=== PATIENT | female | born 1975 ===

== ENCOUNTER 2020-03-06 09:00 | Inpatient (IN) ==
[2020-04-17] MEDS ORDERED: Buffered Lidocaine 1% SYRIN 1 ml INTRADERM ONE (06:00)
[2020-04-17] MEDS ORDERED: Lactated Ringers 1000 ml BAG 1,000 ML IV SCH (06:00)
[2020-04-17] MEDS ORDERED: Heparin 5000 UNITS/ML 1 mL VIAL ONE (06:47)
[2020-04-17] MEDS ORDERED: ceFAZolin 2 GM PREMIX 2 GM/50 ML BAG ONE (06:47)
[2020-04-17] MEDS ORDERED: ceFAZolin 1 GM ADVAN 1 GM ADDV.VIAL IVPB ONE (06:47)
[2020-04-17] MEDS ORDERED: Ondansetron 4 mg VIAL 2 MG/ML 2 ml VIAL ONE ×2 (07:08→09:49)
[2020-04-17] MEDS ORDERED: Propofol 10 MG/ML 20 ML BTL ONE (07:08)
[2020-04-17] MEDS ORDERED: fentaNYL 250 mcg/5 ml 50 MCG/ML 5 ml VIAL (250 MCG) ONE (07:08)
[2020-04-17] MEDS ORDERED: Midazolam 2 mg/2 ml VIAL 1 mg/ml 2 ml VIAL (2 mg) ONE (07:08)
[2020-04-17] MEDS ORDERED: Lidocaine 2% PF 5 ML VIAL ONE (07:09)
[2020-04-17] MEDS ORDERED: Rocuronium 50 mg VIAL 10 mg/ml 5 ml VIAL (50 mg) ONE ×2 (07:09→08:32)
[2020-04-17] MEDS ORDERED: Bupivacaine 0.25% SDV 30 ML ONE (07:20)
[2020-04-17] MEDS ORDERED: EPHEDrine (Pressors) 50 MG/ML VIAL ONE (08:30)
[2020-04-17] MEDS ORDERED: Naloxone 0.4 mg VIAL 0.4 mg/ml 1 ml VIAL IV PRN (09:17)
[2020-04-17] MEDS ORDERED: oxyCODONE/Acetamin 5/325 mg TAB PO PRN (09:17)
[2020-04-17] MEDS ORDERED: DiMENhydriNATE IV 50 mg/ml 1 ml VIAL IV PUSH PRN (09:17)
[2020-04-17] MEDS ORDERED: Ondansetron 4 mg VIAL 2 MG/ML 2 ml VIAL IV PRN ×2 (09:17→20:45)
[2020-04-17] MEDS ORDERED: HYDROcodone/ACET. 7.5/325 LIQ 15 ML UDC PO PRN (09:43)
[2020-04-17] MEDS ORDERED: fentaNYL 100 mcg/2 ml 50 MCG/ML VIAL ONE (09:49)
[2020-04-17] MEDS: fentaNYL 100 mcg/2 ml 50 MCG/ML VIAL IV PRN ×2 (09:50→10:00)
[2020-04-17] MEDS ORDERED: Albuterol/Ipratropium NEB.SOL (2.5/0.5 MG) 3 ML NEB.SOLN INH PRN (09:50)
[2020-04-17] MEDS ORDERED: HYDROmorphone 1 MG/1 ML SYRINGE ONE (10:16)
[2020-04-17] MEDS: HYDROmorphone 0.5 MG/0.5 ML SYRINGE IV SLOW PU PRN ×4 (10:22→20:51)
[2020-04-17] MEDS: Lactated Ringers 1000 ml BAG 1,000 ML IV SCH ×2 (11:46→18:30)
[2020-04-17] MEDS: Heparin 5000 UNITS/ML 1 mL VIAL SUBCUT SCH ×2 (15:29→22:08)
[2020-04-17] MEDS ORDERED: Famotidine IV 10 MG/ML 2 ml VIAL (20 mg) ONE (21:04)
[2020-04-17] MEDS: Famotidine IV 10 MG/ML 2 ml VIAL (20 mg) IV SCH (21:09)
[2020-04-18] MEDS: Lactated Ringers 1000 ml BAG 1,000 ML IV SCH (01:31)
[2020-04-18] MEDS: HYDROmorphone 0.5 MG/0.5 ML SYRINGE IV SLOW PU PRN (04:02)
[2020-04-18] MEDS: Heparin 5000 UNITS/ML 1 mL VIAL SUBCUT SCH ×3 (06:18→22:52)
[2020-04-18] MEDS: Famotidine IV 10 MG/ML 2 ml VIAL (20 mg) IV SCH (07:51)
[2020-04-18] MEDS: D5W 1/2 NS KCl 20 meq 1000 ml 1,000 ML IV SCH ×2 (10:00→17:28)
[2020-04-19] MEDS: D5W 1/2 NS KCl 20 meq 1000 ml 1,000 ML IV SCH (01:48)
[2020-04-19] MEDS: Heparin 5000 UNITS/ML 1 mL VIAL SUBCUT SCH (06:16)
[2020-04-19 08:16] VITALS: BP 112/61
[2020-04-19] MEDS: Famotidine IV 10 MG/ML 2 ml VIAL (20 mg) IV SCH (08:42)
== END 2020-04-19 10:12 | disposition home or self-care (01) | DRG 403 ==
LOC: AA 04-17 06:01 → SSU 04-17 11:37
PROVIDERS: ADMIT Surgery; ATTEND Surgery